=== PATIENT | male | born 1990 | race Caucasian/White ===

== ENCOUNTER 2022-08-19 17:26 | Emergency (ER) | payer MEDICAID ==
[~2022-08-19] VITALS: Ht 167.6 cm; Wt 92.0 kg
[2022-08-19] MEDS ORDERED: TETANUS, DIPHTHERIA, PERTUSSIS VAC/PF 0.5ML (>10YR OLD) IM ONE (17:45)
[2022-08-19] MEDS ORDERED: CEFAZOLIN 1000MG PREMIX 50 ML IV ONE (17:45)
[2022-08-19] MEDS ORDERED: SODIUM CHLORIDE 0.9% 1,000 ML IV ONE (17:45)
[2022-08-19 17:56] LABS: BASOPHILS % 0.8 % (0.0-2.0); EOSINOPHILS % 0.4 % (0.0-5.0); HEMATOCRIT. 41.1 % (42.0-52.0); HEMOGLOBIN. 14.3 g/dL (14.0-18.0); LYMPHOCYTES % 20.2 % (20.0-50.0); MEAN CORPUSCULAR HEMOGLOBIN 32.1 pg (28.0-32.0); MEAN CORPUSCULAR VOLUME 92.1 fL (80.0-94.0); MEAN PLATELET VOLUME 7.7 fl (7.4-10.4); MONOCYTES % 7.2 % (2.0-8.0); NEUTROPHILS % 71.4 % (40.0-76.0); PLATELET 296 x1000/uL (130-400); RED BLOOD CELL COUNT 4.46 mill/uL (4.7-6.1); RED CELL DISTRIBUTION WIDTH 13.5 % (11.6-14.6)
[2022-08-19] MEDS ORDERED: LORAZEPAM 2MG/ML CPJ IM ONE (18:00)
[2022-08-19 18:03] LABS: CHLORIDE 99 mEq/L (98-107)
[2022-08-19 18:05] LABS: PARTIAL THROMBOPLASTIN TIME 23.1 sec (23.4-31.0); PROTHROMBIN TIME 10.9 sec (9.6-11.0)
[2022-08-19] MEDS ORDERED: POTASSIUM CHLORIDE 20MEQ TABLET SR PO ONE (19:00)
[2022-08-19] MEDS ORDERED: LIDOCAINE HCL/EPINEPHRINE 1%-EPI 1:100,000 20 ML VIAL INFIL ONE (19:45)
[2022-08-19] MEDS ORDERED: BACITRACIN 15GM TUBE TOP ONE (21:45)
[2022-08-19 23:15] LABS: CHLORIDE 104 mEq/L (98-107)
[2022-08-20 00:26] VITALS: BP 119/76
== END 2022-08-20 03:18 | disposition home or self-care (01) ==
LOC: ER 17:26
DX: S81.832A Puncture wound without foreign body, left lower leg, initial encounter (principal); W34.09XA Accidental discharge from other specified firearms, initial encounter; Y93.89 Activity, other specified; Y92.89 Other specified places as the place of occurrence of the external cause; Y99.8 Other external cause status; F17.290 Nicotine dependence, other tobacco product, uncomplicated; F12.10 Cannabis abuse, uncomplicated; F15.10 Other stimulant abuse, uncomplicated
CPT/HCPCS: 12002; 36415; 73590; 80048; 83735; 85025; 85610; 85730; 90471; 90715; 93005; 96372; 99291; J2060; J3490; J7030